=== PATIENT | male | born 1955 | race Caucasian/White ===

== ENCOUNTER 2021-11-17 15:42 | Inpatient (IN) | payer MEDICARE, OTHER ==
[~2021-11-17] VITALS: Ht 177.8 cm; Wt 72.0 kg
[2021-11-17] MEDS ORDERED: SODIUM CHLORIDE 0.9% 2,000 ML IV ONE (16:00)
[2021-11-17] MEDS ORDERED: ACETAMINOPHEN 500 MG TABLET PO ONE (16:00)
[2021-11-17 16:38] LABS: ANION GAP 5 mmol/L (8-16); CALCIUM, TOTAL 8.7 mg/dL (8.8-10.5); CARBON DIOXIDE 31 mmol/L (22-29); CHLORIDE 96 mmol/L (98-107); CREATININE 1.57 mg/dL (0.60-1.30); GLOMERULAR FILTR. RATE CALC 44 mL/min (>60); GLUCOSE,RANDOM 124 mg/dL (70-110); POTASSIUM 3.2 mmol/L (3.5-5.1); SODIUM SERUM 132 mmol/L (136-145); UREA NITROGEN, BLOOD 25 mg/dL (7-18)
[2021-11-17 16:43] LABS: ALANINE AMINOTRANSFERASE 9 U/L (12-78); ALBUMIN 2.9 g/dL (3.4-5.0); ALKALINE PHOSPHATASE 97 U/L (46-116); ASPARTATE AMINOTRANSFERASE 44 U/L (15-37); BILIRUBIN,TOTAL 7.2 mg/dL (0.1-1.0); INR 1.5 (0.9-1.1); LIPASE 51 U/L (73-393); PROTHROMBIN TIME 15.6 SEC (9.4-11.6); TOTAL PROTEIN, SERUM 6.6 g/dL (6.4-8.2)
[2021-11-17 16:44] LABS: BASOPHILS % (AUTO) 0.3 % (0.0-2.0); EOSINOPHILS % (AUTO) 0.8 % (1.0-6.0); HEMATOCRIT 25.3 % (41-53); HEMOGLOBIN 8.7 g/dL (13.5-17.5); LYMPHOCYTES # (AUTO) 0.3 K/uL (1.0-4.8); LYMPHOCYTES % (AUTO) 8.3 % (22.0-44.0); MEAN CORPUSCULAR HEMOGLOBIN 33.1 pg (26.0-34.0); MEAN CORPUSCULAR HGB CONC 34.2 G/dL (31.0-37.0); MEAN CORPUSCULAR VOLUME 97 fL (80-100); MONOCYTES # (AUTO) 0.6 K/uL (0.1-1.0); NEUTROPHILS # (AUTO) 3.2 K/uL (1.8-7.7); NEUTROPHILS % (AUTO) 76.6 % (40.0-70.0); PLATELET COUNT (AUTO) 139 K/uL (150-450); RED BLOOD CELL COUNT(AUTO) 2.61 MIL/uL (4.50-5.90); RED CELL DISTRIBUTION WIDTH 16.7 % (11.5-14.5)
[2021-11-17 16:45] LABS: TROPONIN I 0.03 ng/mL (0.00-0.05)
[2021-11-17 17:07] LABS: COVID AG,FIA SOURCE NASOPHARYNGEAL
[2021-11-17 17:16] LABS: B-TYPE NATRIURETIC PEPTIDE 275 pg/mL (0-100)
[2021-11-17 17:30] LABS: LACTIC ACID 4.3 mmol/L (0.4-2.0)
[2021-11-17] MEDS ORDERED: CefTRIAXone 1 GM/DEXTROSE 50 ML IV ONE (17:42)
[2021-11-17] MEDS ORDERED: ONDANSETRON HCL 4 MG/2 ML VIAL IVP PRN ×2 (17:45→18:45)
[2021-11-17] MEDS ORDERED: ACETAMINOPHEN 325 MG TABLET PO PRN ×2 (17:45→18:45)
[2021-11-17] MEDS ORDERED: 0.9% SODIUM CHLORIDE 10 ML SYRINGE IVP PRN (17:45)
[2021-11-17 18:35] LABS: INFLUENZA TYPE A NEGATIVE FOR TYPE A (NEGATIVE); INFLUENZA TYPE B NEGATIVE FOR TYPE B (NEGATIVE)
[2021-11-17] MEDS ORDERED: POTASSIUM CHLORIDE 20 MEQ ER TABLET PO PRN (18:45)
[2021-11-17] MEDS ORDERED: SODIUM CHLORIDE 0.9% 500 ML IV ONE (18:45)
[2021-11-17] MEDS ORDERED: POTASSIUM CHL 10 MEQ/WATER 50 ML IV PRN (18:45)
[2021-11-17] MEDS ORDERED: SODIUM CHLORIDE 0.9% 1,000 ML IV ONE (19:30)
[2021-11-17] MEDS: LACTULOSE 20 GM/30 ML SOLUTION UDCUP PO SCH (20:39)
[2021-11-17 20:53] LABS: SPECIMENTYPE,BODY FLUID ASCITES
[2021-11-17 21:56] LABS: APPEARANCE,SPUN,BODY FLUID CLEAR (CLEAR); APPEARANCE,UNSPUN,BODY FLUID CLEAR (CLEAR); COLOR,BODY FLUID YELLOW (LT YELLOW); WBC, BODY FLUID 1 /cu. mm.
[2021-11-17 21:57] LABS: BASOPHILS,BODY FLUID 0 %; EOSINOPHILS,BF (ANAL) 0 %; LYMPHOCYTES,BODY FLUID 100 %; MONOCYTES,BODY FLUID 0 %; NEUTROPHILS,BODY FLUID 0 %
[2021-11-17 22:02] LABS: TOTAL VOLUME,BODY FLUID 5 mL
[2021-11-17 22:10] VITALS: BP 98/70
[2021-11-18 00:33] LABS: APPEARANCE,URINE CLEAR (CLEAR); GLUCOSE, URINE (UA) NEGATIVE (NEGATIVE); KETONES,URINE TRACE mg/dL (NEGATIVE); LEUKOCYTE ESTERASE ,URINE TRACE (NEGATIVE); NITRATE,URINE NEGATIVE (NEGATIVE); OCCULT BLOOD,URINE NEGATIVE (NEGATIVE); PROTEIN,URINE NEGATIVE (NEGATIVE)
[2021-11-18 00:45] LABS: BILIRUBIN,URINE PRELIM. POSITIVE (NEGATIVE)
[2021-11-18 00:47] LABS: BACTERIA,URINE Few /HPF (None Seen); RBC,URINE 0-2 /HPF (0-2)
[2021-11-18 00:50] LABS: AMPHET/METH SCREEN,URINE NEGATIVE (NEGATIVE); BARBITURATE SCREEN, URINE NEGATIVE (NEGATIVE); BENZODIAZEPINES SCREEN,URINE NEGATIVE (NEGATIVE); CANNABINOID SCREEN,URINE NEGATIVE (NEGATIVE); COCAINE SCREEN,URINE NEGATIVE (NEGATIVE); METHADONE SCREEN, URINE NEGATIVE (NEGATIVE); OPIATE SCREEN,URINE NEGATIVE (NEGATIVE)
[2021-11-18 00:54] LABS: PHENCYCLIDINE SCREEN,URINE NEGATIVE (NEGATIVE)
[2021-11-18 05:02] VITALS: BP 99/69
[2021-11-18 07:18] LABS: ALBUMIN 2.6 g/dL (3.4-5.0); BILIRUBIN,TOTAL 6.2 mg/dL (0.1-1.0); CALCIUM, TOTAL 8.6 mg/dL (8.8-10.5); CREATININE 1.81 mg/dL (0.60-1.30); POTASSIUM 4.5 mmol/L (3.5-5.1); TOTAL PROTEIN, SERUM 6.3 g/dL (6.4-8.2)
[2021-11-18 08:00] VITALS: BP 105/69
[2021-11-18] MEDS: LACTULOSE 20 GM/30 ML SOLUTION UDCUP PO SCH ×2 (08:19→20:11)
[2021-11-18] MEDS: PANTOPRAZOLE SODIUM 40 MG DR TABLET PO SCH (08:19)
[2021-11-18 16:33] VITALS: BP 104/72
[2021-11-18 20:45] VITALS: BP 106/62
[2021-11-19 03:50] VITALS: BP 92/69
[2021-11-19 07:34] VITALS: BP 102/68
[2021-11-19] MEDS: PANTOPRAZOLE SODIUM 40 MG DR TABLET PO SCH (08:43)
[2021-11-19] MEDS: LACTULOSE 20 GM/30 ML SOLUTION UDCUP PO SCH (08:43)
[2021-11-19 15:03] VITALS: BP 106/70
== END 2021-11-19 16:45 | disposition left against medical advice (07) | DRG 441 ==
LOC: EMS 15:44 → 6N 18:40
PROVIDERS: ADMIT Internal Medicine; ATTEND Internal Medicine
DX: K72.91 Hepatic failure, unspecified with coma (principal); E43 Unspecified severe protein-calorie malnutrition; U07.1 COVID-19; D61.818 Other pancytopenia; D68.9 Coagulation defect, unspecified; K70.31 Alcoholic cirrhosis of liver with ascites; R62.7 Adult failure to thrive; E87.6 Hypokalemia; Z68.22 Body mass index [BMI] 22.0-22.9, adult; Z20.822 Contact with and (suspected) exposure to COVID-19; Z87.891 Personal history of nicotine dependence
CPT/HCPCS: 51702; 71045; 76700; 80053; 80307; 81001; 82140; 82150; 83605; 83690; 83880; 84484; 85025; 85610; 85730; 87040; 87075; 87205; 87804; 89051; 92610; 93005; 97110; 97161; 99291; G0480; J0696; J7030; J7040; 36415-L1; 36415-TC; 87070; U0003